=== PATIENT | female | born 1990 | race Caucasian/White ===

== ENCOUNTER 2019-10-11 03:06 | Inpatient (IN) | payer OTHER ==
[~2019-10-11] VITALS: Ht 165.1 cm; Wt 75.7 kg
--- NOTE | 2019-10-11 06:15 | NUR ---
RECEIVED FROM ER OF [facility] PER YUDELKA AWAKE AND ALERT. NO SOB. DX. OF GALLSTONES. NO EDEMA. SKIN INTACT . A/O X 4. ROM X4. CARE PLANS FOR THE DAY DISCUSSED WITH HER AND CALL LIGHT USE FOR HELP OR IF IN PAIN EXPLAINED TO HER. DX. OF GALLSTONES. IVF SITE TO [facility]#20. UNDER MD YARY SANTOS. WILL ENDORSE TO AM RN FOR CONTINUITY OF CARE.
[2019-10-11] MEDS ORDERED: ONDANSETRON 4 MG/2 ML VIAL IVP PRN (06:30)
[2019-10-11] MEDS ORDERED: DEXT 5% / NACL 0.45% 1,000 ML IV SCH (06:30)
[2019-10-11 06:47] VITALS: BP 118/75
[2019-10-11] MEDS: MORPHINE SULFATE 4 MG/ML SYR IVP PRN ×3 (06:54→20:59)
--- NOTE | 2019-10-11 07:01 | NUR ---
PT. MEDICATED WITH ZOFRAN IVP AND MORPHINE 4 MG IVP REQUESTED BY PT. "JEFF ANGELA" PER PT.
[2019-10-11 08:00] VITALS: BP 111/68
--- NOTE | 2019-10-11 08:35 | NUR ---
AT THE BEDSIDE WITH PATIENT, PATIENT SLEEPING IN BED, NO DISTRESS NOTED.
[2019-10-11 08:56] LABS: BASOPHILS % (AUTO) 0.2 % (0.0-2.0); EOSINOPHILS % (AUTO) 0.4 % (0.0-4.0); HEMATOCRIT 37.5 % (36-48); HEMOGLOBIN 12.5 g/dL (12.0-16.0); LYMPHOCYTES # (AUTO) 1.1 K/uL (2.5-16.5); LYMPHOCYTES % (AUTO) 14.5 % (20.5-51.1); MEAN CORPUSCULAR HEMOGLOBIN 31 pg (27-31); MEAN CORPUSCULAR HGB CONC 33 g/dL (33-37); MEAN CORPUSCULAR VOLUME 93.3 fL (80-94); MONOCYTES # (AUTO) 0.5 K/uL (0.8-1.0); MONOCYTES % (AUTO) 5.9 % (1.7-9.3); NEUTROPHILS # (AUTO) 6.2 K/uL (1.8-7.7); PLATELET COUNT (AUTO) 291 K/uL (140-450); RED BLOOD CELL COUNT(AUTO) 4.01 MIL/uL (4.20-5.40); RED CELL DISTRIBUTION WIDTH 14.4 % (11.6-13.7); WHITE BLOOD COUNT (AUTO) 7.8 K/uL (4.8-10.8)
[2019-10-11 09:13] LABS: ALBUMIN 3.3 g/dL (3.4-5.0); ANION GAP 12.9 (8-16); CARBON DIOXIDE 26.8 mmol/L (21-32); CREATININE 0.8 mg/dL (0.6-1.3); POTASSIUM 3.7 mmol/L (3.5-5.1); TOTAL BILIRUBIN 2.9 mg/dL (0.0-1.0)
[2019-10-11 12:00] VITALS: BP 109/79
--- NOTE | 2019-10-11 12:09 | NUR ---
PATIENT RESTING IN BED WITH FAMILY AT THE BEDSIDE. 3 CHILDREN AND . NO DISTRESS NOTED, WILL CONTINUE TO MONITOR PATIENT .
[2019-10-11] MEDS: LACTATED RINGERS 1,000 ML IV SCH ×2 (14:35→21:00)
[2019-10-11 16:00] VITALS: BP 116/80
--- NOTE | 2019-10-11 16:12 | NUR ---
PATIENT HAS BEEN SCREENED AND CATEGORIZED LOW NUTRITION RISK. PATIENT WILL BE SEEN WITHIN 7 DAYS OF ADMISSION. 10/17/[address]
[2019-10-11] MEDS: SENNA 8.6 MG TAB PO SCH (16:32)
--- NOTE | 2019-10-11 17:13 | NUR ---
AT THE BEDSIDE WITH DR BECERRA AND VISION REHABILITATION THERAPIST, CURBSTONE SETTER USED TO EXPLAIN PROCEDURE AND PLAN OF CARE. PATIENT IN STABLE CONDITION. VERBALIZED UNDERSTANDING OF PLAN FOR ERCP AND GALLBLADDER REMOVAL. WILL CONTINUE TO MONITOR PATIENT.
--- NOTE | 2019-10-11 19:30 | NUR ---
ENDORSED TO AFTER SCHOOL COUNSELOR NURSE. PATIENT IS IN STABLE CONDITION.
[2019-10-11 20:00] VITALS: BP 107/63
--- NOTE | 2019-10-11 20:00 | NUR ---
CALLED THE RADIOLOGY TO GET A FAX OF THE USD OF THE GALLBLADDER CRITICAL RESULT. RTHIS WAS ENDORSED BY THE PREVIOUS SHIFT, BENNIE PANDEY THAT RADIOLOGIST CALLED HIM UP RE: CRITICAL RESULT.
--- NOTE | 2019-10-11 20:09 | NUR ---
FAX RECEIVED WILL INFORM DR. BECERRA.
--- NOTE | 2019-10-11 20:11 | NUR ---
CALLED EXCHANGE FOR DR. BECERRA, AWAITING CALL BACK.
--- NOTE | 2019-10-11 20:27 | NUR ---
DR. MAURER CALLED AND INFORMED HIM OF THE USD OF THE GB= CHOLELITHIASIS W/ GB WALL THICKENING. HIDA SCAN MAY BE PURSUED.SAID THAT HE AND NOT DR. LONDONO WILL DO THE PROCEDURE. CONSENT TO BE SIGNED BY PT UNDER DR. MAURER.
--- NOTE | 2019-10-11 20:29 | NUR ---
NO CALL BACK BY DR. BECERRA STILL AWAITING
[2019-10-11] MEDS: PIPERACILLIN/TAZOBACTAM 3.375 GM in DEXTROSE 5% 50 ML IV SCH (20:59)
--- NOTE | 2019-10-11 21:10 | NUR ---
CALLED DR. BECERRA CELLPHONE, DR. NAVARRETE RE: GB USD RESULT; WITH ORDERS OF URINE TEST, CARRIED OUT.
[2019-10-12] VITALS: BP 108/65
--- NOTE | 2019-10-12 01:30 | NUR ---
COLLECTED URINE FOR URINE TEST, AWAITING RESULTS TO RELAY RESULT TO RADIOLOGY DEPT SO THAT CT SCAN OF THE PELVIS AND ABDOMEN CAN BE DONE.
[2019-10-12] MEDS: LACTATED RINGERS 1,000 ML IV SCH ×4 (02:09→20:29)
[2019-10-12 04:00] VITALS: BP 108/66
[2019-10-12] MEDS: PIPERACILLIN/TAZOBACTAM 3.375 GM in DEXTROSE 5% 50 ML IV SCH ×3 (04:39→20:11)
[2019-10-12 04:58] LABS: APPEARANCE,URINE CLEAR (CLEAR); BILIRUBIN,URINE NEGATIVE (NEGATIVE); BLOOD, URINE NEGATIVE (NEGATIVE); COLOR,URINE YELLOW (YELLOW); LEUKOCYTE ESTERASE ,URINE 1+ (NEGATIVE); NITRITE, URINE NEGATIVE (NEGATIVE); UGLUCOSE NEGATIVE (NEGATIVE)
[2019-10-12 05:07] LABS: RBC,URINE 0-5 /HPF (0-5); YEAST,URINE Many /HPF (None Seen)
[2019-10-12 06:42] LABS: ANION GAP 13.9 (8-16); CREATININE 0.7 mg/dL (0.6-1.3); POTASSIUM 3.9 mmol/L (3.5-5.1)
[2019-10-12 06:49] LABS: ALBUMIN 3.1 g/dL (3.4-5.0); BILIRUBIN,DIRECT 0.4 mg/dL (0.0-0.3)
--- NOTE | 2019-10-12 07:12 | NUR ---
PT AWAKE ALERT ORIENTED X 4, AMBULATORY PT FOR ERCP; PT IN STABLE CONDITION, ENDORSED TO NEXT SHIFT
--- NOTE | 2019-10-12 07:30 | NUR ---
Received report from production shift supervisor nurse. Pt is in stable condition. Call light in reach.
[2019-10-12 08:00] VITALS: BP 104/58
--- NOTE | 2019-10-12 08:00 | NUR ---
Pt is off unit for surgery.
[2019-10-12] MEDS ORDERED: KETAMINE 500 MG/5 ML VIAL ONE (08:02)
[2019-10-12] MEDS ORDERED: MIDAZOLAM 2 MG/2 ML VIAL ONE (08:02)
[2019-10-12] MEDS: SENNA 8.6 MG TAB PO SCH ×3 (09:00→17:31)
[2019-10-12] MEDS ORDERED: HYDROmorphone 1 MG/ML AMP IVP PRN (09:15)
[2019-10-12] MEDS ORDERED: ONDANSETRON 4 MG/2 ML VIAL IVP PRN (09:15)
--- NOTE | 2019-10-12 10:05 | NUR ---
Pt came back from surgery via gurney. Pt is in stable condition. No complains of pain or distress noted. Call light in reach.
[2019-10-12] MEDS: PANTOPRAZOLE 40 MG INJ VIAL IVP SCH (10:32)
[2019-10-12 12:00] VITALS: BP 108/62
--- NOTE | 2019-10-12 12:00 | NUR ---
Pt is in bed in stable condition. Family by bedside. Call light in reach.
--- NOTE | 2019-10-12 15:06 | NUR ---
Pt is in bed in stable condition. Family by bedside. Call light in reach.
[2019-10-12 16:00] VITALS: BP 106/61
--- NOTE | 2019-10-12 18:02 | NUR ---
Pt is in bed in stable condition. Call light in reach.
--- NOTE | 2019-10-12 19:11 | NUR ---
Shift report given to account clerk nurse. Pt is in bed in stable condition. Call light in reach.
--- NOTE | 2019-10-12 19:12 | NUR ---
Received endorsement from AM shift RN; patient A/Ox4, able to make needs known, Citizen [place] speaking only, ambulatory. Introduced self, updated board. No SOB or distress noted, on room air. IV site on right hand, 20 gauge, running Lactated Ringers at 150mL/hr. Skin intact. Bed in the lowest position, call light within reach. Initial assessment done. will continue to monitor.
--- NOTE | 2019-10-12 21:25 | NUR ---
Due meds given, tolerated well.
--- NOTE | 2019-10-12 23:45 | NUR ---
Vitals taken, no SOB or distress noted.
[2019-10-13] VITALS: BP 108/67
--- NOTE | 2019-10-13 01:45 | NUR ---
Checks made; patient asleep, eyes closed, visible chest rise and fall noted.
--- NOTE | 2019-10-13 04:00 | NUR ---
Rounds done; patient asleep, eyes closed, visible chest rise and fall noted.
[2019-10-13] MEDS: PIPERACILLIN/TAZOBACTAM 3.375 GM in DEXTROSE 5% 50 ML IV SCH ×3 (04:05→21:59)
[2019-10-13] MEDS: LACTATED RINGERS 1,000 ML IV SCH ×3 (04:06→19:55)
--- NOTE | 2019-10-13 06:02 | NUR ---
Vitals stable, due meds given. Will endorse to AM shift RN for continuity of care.
[2019-10-13 06:43] LABS: BASOPHILS % (AUTO) 0.7 % (0.0-2.0); EOSINOPHILS # (AUTO) 0.1 K/uL (0-0.4); EOSINOPHILS % (AUTO) 1.2 % (0.0-4.0); HEMATOCRIT 34.4 % (36-48); HEMOGLOBIN 11.5 g/dL (12.0-16.0); LYMPHOCYTES # (AUTO) 1.5 K/uL (2.5-16.5); LYMPHOCYTES % (AUTO) 24.5 % (20.5-51.1); MEAN CORPUSCULAR HEMOGLOBIN 31 pg (27-31); MEAN CORPUSCULAR HGB CONC 34 g/dL (33-37); MEAN CORPUSCULAR VOLUME 92.8 fL (80-94); MONOCYTES # (AUTO) 0.4 K/uL (0.8-1.0); MONOCYTES % (AUTO) 6.3 % (1.7-9.3); NEUTROPHILS # (AUTO) 4.2 K/uL (1.8-7.7); NEUTROPHILS % (AUTO) 67.3 % (42.2-75.2); PLATELET COUNT (AUTO) 273 K/uL (140-450); RED BLOOD CELL COUNT(AUTO) 3.71 MIL/uL (4.20-5.40); RED CELL DISTRIBUTION WIDTH 13.7 % (11.6-13.7); WHITE BLOOD COUNT (AUTO) 6.3 K/uL (4.8-10.8)
[2019-10-13 06:50] LABS: ALBUMIN 2.9 g/dL (3.4-5.0); ANION GAP 14.2 (8-16); CARBON DIOXIDE 26.5 mmol/L (21-32); CREATININE 0.7 mg/dL (0.6-1.3); POTASSIUM 3.7 mmol/L (3.5-5.1); TOTAL BILIRUBIN 0.8 mg/dL (0.0-1.0)
--- NOTE | 2019-10-13 07:15 | NUR ---
RECEIVED PT FROM MANAGER BUSINESS OPERATIONS NURSE, PT IS AWAKE AND LYING ON THE BED WITH SIDE RAILS UP AND CALL LIGHT WITHIN REACH, IV LINE ON THE RT HAND G.20 WITH LR INFUSING AT 150ML/HR, INTACT, PT DENIES PAIN AND NO SIGN OF DISTRESS NOTED AND WILL MONITOR PT.
[2019-10-13 07:50] VITALS: BP 110/66
[2019-10-13] MEDS: PANTOPRAZOLE 40 MG INJ VIAL IVP SCH (09:00)
[2019-10-13] MEDS: SENNA 8.6 MG TAB PO SCH ×3 (09:00→16:43)
--- NOTE | 2019-10-13 09:00 | NUR ---
PT IS OFF THE UNIT NOW FOR A PROCEDURE, BP IS 97/52, PULSE IS 67, O2 SATURATION IS 96%, PT IS STABLE AT THIS TIME.
[2019-10-13] MEDS ORDERED: MIDAZOLAM 2 MG/2 ML VIAL ONE (09:02)
[2019-10-13] MEDS ORDERED: fentaNYL 0.05 MG/ML VIAL ONE (09:02)
[2019-10-13] MEDS ORDERED: SUCCINYLCHOLINE CHLORIDE 200 MG/10 ML VIAL IVP ONE (09:08)
[2019-10-13] MEDS ORDERED: KETOROLAC 30 MG/ML VIAL ONE (09:08)
[2019-10-13] MEDS ORDERED: DESFLURANE 240 ML BTL INH ONE (09:08)
[2019-10-13] MEDS ORDERED: PROPOFOL 200 MG/20 ML VIAL IV ONE (09:08)
[2019-10-13] MEDS ORDERED: ROCURONIUM 50 MG/5 ML VIAL IV ONE (09:08)
[2019-10-13] MEDS ORDERED: LIDOCAINE 2% 100 MG/5 ML SYR IVP ONE (09:08)
[2019-10-13] MEDS ORDERED: DEXAMETHASONE 4 MG/ML VIAL ONE (09:08)
[2019-10-13] MEDS ORDERED: ONDANSETRON 4 MG/2 ML VIAL IVP PRN ×2 (09:40→11:30)
[2019-10-13] MEDS ORDERED: HYDROmorphone 1 MG/ML AMP IVP PRN (09:40)
[2019-10-13] MEDS: BUPIVACAINE-MPF/EPI 0.25% 30 ML VIAL INJ ONE ×2 (09:56→11:00)
[2019-10-13] MEDS ORDERED: HYDROcodone/APAP 5/325 MG 1 TAB TAB PO PRN (11:30)
[2019-10-13] MEDS ORDERED: MORPHINE SULFATE 4 MG/ML SYR IV PRN (11:30)
[2019-10-13] MEDS ORDERED: MORPHINE SULFATE 2 MG/ML SYR IVP PRN (11:30)
[2019-10-13] MEDS ORDERED: HYDROmorphone PFS 2 MG/ML SYR ONE (11:49)
--- NOTE | 2019-10-13 12:25 | NUR ---
PT CAME BACK TO ROOM FROM A LAPAROSCOPIC CHOLECYSTECTOMY WITH OPEN CHOLANGIOGRAM, [address] AND A SHAUNA BULB ON THE RT ABDOMEN, VS TAKEN, BP IS 119/68, PULSE IS 70, TEMP. IS 97.5, O2 SATURATION IS 96% ON ROOM AIR AND RESPIRATION IS 16/MIN, WILL MONITOR PT.
--- NOTE | 2019-10-13 12:44 | NUR ---
PT WAS GIVEN IV ZOSYN VIA PIGGYBACK NOW. WILL MONITOR PT.
[2019-10-13 15:08] LABS: ANION GAP 17.9 (8-16); CARBON DIOXIDE 23.4 mmol/L (21-32); CREATININE 0.7 mg/dL (0.6-1.3); POTASSIUM 4.3 mmol/L (3.5-5.1)
[2019-10-13 15:09] LABS: TOTAL BILIRUBIN 0.7 mg/dL (0.0-1.0)
--- NOTE | 2019-10-13 15:15 | NUR ---
PT IS IN THE BATHROOM NOW.
[2019-10-13 16:00] VITALS: BP 119/66
--- NOTE | 2019-10-13 16:32 | NUR ---
PT AMBULATED TO THE BATHROOM AND WAS ASSISTED, AND THEN BACK TO BED, PAIN IS 2/10, ORAL MEDICATION WAS GIVEN AND TOLERATED IT, WILL MONITOR RPT.
--- NOTE | 2019-10-13 19:05 | NUR ---
ENDORSED PT TO PERSONAL DEVELOPMENT COACH NURSE FOR CONTINUITY OF CARE
--- NOTE | 2019-10-13 19:06 | NUR ---
RECEIVED REPORT FROM AM SHIFT NURSE. PATIENT ALERT AND ORIENTED X4. [place] SPEAKING. WITH RIGHT AC 20G RUNNING IVF. NO APPARENT DISTRESS NOTED. WITH C/O OF 10/10 PAIN ON INCISION SITES. WILL MEDICATE PER PAIN SCALE. 3 INCISION SITES NOTED WITH 1 SHAUNA DRAIN ON RIGHT ABDOMEN. DRESSINGS CLEAN, DRY AND INTACT. WILL CONTINUE TO MONITOR.
[2019-10-13] MEDS: HYDROmorphone 1 MG/ML AMP IVP PRN (19:46)
--- NOTE | 2019-10-13 21:05 | NUR ---
PATIENT ASLEEP IN BED. NO APPARENT DISTRESS NOTED. WILL CONTINUE TO MONITOR.
--- NOTE | 2019-10-13 23:00 | NUR ---
ASSISTED PATIENT TO RESTROOM. TOLERATED WELL. WILL CONTINUE TO MONITOR.
[2019-10-14] VITALS: BP 125/68
--- NOTE | 2019-10-14 01:00 | NUR ---
PATIENT ASLEEP IN BED. NO APPARENT DISTRESS NOTED. WILL CONTINUE TO MONITOR.
[2019-10-14] MEDS: LACTATED RINGERS 1,000 ML IV SCH ×4 (01:25→20:10)
[2019-10-14] MEDS: HYDROmorphone 1 MG/ML AMP IVP PRN ×5 (01:35→22:14)
--- NOTE | 2019-10-14 02:30 | NUR ---
PATIENT ASLEEP IN BED. NO APPARENT DISTRESS NOTED. WILL CONTINUE TO MONITOR.
--- NOTE | 2019-10-14 04:30 | NUR ---
ASSISTED PATIENT TO RESTROOM. TOLERATED WELL. WILL CONTINUE TO MONITOR.
[2019-10-14] MEDS: PIPERACILLIN/TAZOBACTAM 3.375 GM in DEXTROSE 5% 50 ML IV SCH ×3 (05:15→20:11)
--- NOTE | 2019-10-14 06:30 | NUR ---
PATIENT ASLEEP IN BED. NO APPARENT DISTRESS NOTED. WILL CONTINUE TO MONITOR.
[2019-10-14 07:00] LABS: BASOPHILS % (AUTO) 0.4 % (0.0-2.0); EOSINOPHILS % (AUTO) 0.4 % (0.0-4.0); HEMATOCRIT 31.5 % (36-48); HEMOGLOBIN 10.6 g/dL (12.0-16.0); LYMPHOCYTES % (AUTO) 24.1 % (20.5-51.1); MEAN CORPUSCULAR HEMOGLOBIN 31 pg (27-31); MEAN CORPUSCULAR HGB CONC 34 g/dL (33-37); MEAN CORPUSCULAR VOLUME 92.8 fL (80-94); MONOCYTES # (AUTO) 0.6 K/uL (0.8-1.0); MONOCYTES % (AUTO) 7.1 % (1.7-9.3); NEUTROPHILS # (AUTO) 5.6 K/uL (1.8-7.7); PLATELET COUNT (AUTO) 261 K/uL (140-450); RED BLOOD CELL COUNT(AUTO) 3.39 MIL/uL (4.20-5.40); RED CELL DISTRIBUTION WIDTH 13.7 % (11.6-13.7); WHITE BLOOD COUNT (AUTO) 8.3 K/uL (4.8-10.8)
--- NOTE | 2019-10-14 07:25 | NUR ---
ENDORSED TO AM SHIFT NURSE IN STABLE CONDITION.
--- NOTE | 2019-10-14 07:26 | NUR ---
PATIENT HANDOFF FROM OPERATIONS DEVELOPER NURSE FOR CONTINUITY OF CARE, PATIENT IS LAYING IN BED REPORTING PAIN, MEDICATIONS OFFERED. S/P LAP CHOLECYSECTOMY. [place] SPEAKING. WILL CONTINUE TO MONITOR.
[2019-10-14 07:31] LABS: AMYLASE 57 U/L (25-115); LIPASE 227 U/L (73-393)
[2019-10-14 08:00] VITALS: BP 119/68
--- NOTE | 2019-10-14 09:30 | NUR ---
PATIENT IS RESTING IN BED, EYES CLOSED, COMPLAINING OF PAIN, MEDICATION GIVEN FOR SEVERE 10/10 ABDOMINAL PAIN. PATIENT TOLERATED MEDICATION WELL. EATING BREAKFAST. WILL CONTINUE TO MONITOR.
[2019-10-14] MEDS: PANTOPRAZOLE 40 MG INJ VIAL IVP SCH (10:17)
[2019-10-14] MEDS: SENNA 8.6 MG TAB PO SCH ×3 (10:27→16:20)
--- NOTE | 2019-10-14 11:30 | NUR ---
SHAUNA DRAINED, APPROXIMATELY 42 ML OF SEROSANGUINEOUS FLUID EMPTIED. PATIENT TOLERATED WELL. BED IN LOW POSITION, CALL LIGHT AT BEDSIDE, WILL CONTINUE TO MONITOR.
--- NOTE | 2019-10-14 13:30 | NUR ---
PATIENT IS RESTING IN BED, COMPLAINING OF ABDOMINAL PAIN, MEDICATION GIVEN, PATIENT TOLERATED WELL. BED IN LOW POSITION, CALL LIGHT ON, WILL CONTINUE TO MONITOR.
[2019-10-14 16:00] VITALS: BP 119/72
--- NOTE | 2019-10-14 19:26 | NUR ---
RECEIVED REPORT FROM YARITZA RN AND JENNIFER RN DAYSHIFT NURSES AT BEDSIDE FOR CONTINUITY OF CARE, PT IN STABLE CONDITION.
[2019-10-14 20:00] VITALS: BP 110/61
--- NOTE | 2019-10-14 20:00 | NUR ---
PT SITTING UP IN LOW BED WITH SIDE RAILS UP X2. SHE IS AOX4 MOSTLY [place] SPEAKING. PT HAS IV SITE ON RAC 20G INTACT AND RUNNING LACTATED RINGERS AT 150MLS/HR. PT HAS DRESSINGS OVER INCISIONS , WHICH ARE DRY AND INTACT, SHE HAS NO C/O VOICED AT THIS TIME. PT BOWEL SOUNDS ARE HYPOACTIVE, SHE WAS ENCOURAGED TO AMBULATE SHORT DISTANCES LIKE THE BATHROOM AND TO MOVE IN BED WHICH WILL HELP BOWELS MOVE. V/S FOLLOWS : T 98.0 P 62 R 18 B/P 110/61 02 94% ON ROOM AIR. ALL REQUESTED NEEDS ATTENDED AND CALL VALENTE IN REACH.
--- NOTE | 2019-10-14 21:00 | NUR ---
PT IN BED, SHE WAS GIVEN ORDERED ZOSYN, AND HAD HER FLUID BAG OF LACTATED RINGERS REPLACED WELL. PT DENIES PAIN AT THIS TIME, DRESSINGS REMAIN INTACT AND IV SITE FLUSHED PATENT. BED IN LOW POSITION WITH SIDE RAILS UP X2 AND CALL VALENTE IN REACH. SCD'S IN PLACE FOR DVT PREVENTION.
--- NOTE | 2019-10-14 22:15 | NUR ---
PT C/O SEVERE PAIN IN ABDOMEN AND WAS GIVEN IVP DILAUDID FOR C/O OF 8/10 PAIN, SHE WAS REMINDED THAT TOO MUCH PAIN MEDICATION WILL SLOW DOWN YOUR BOWELS, PT ACKNOWLEDGED THIS INFORMATION. WILL CONTINUE TO MONITOR FOR PAIN REIELF AND BOWEL MOVEMENT. BED LOW SIDE RIALS UP X2 AND CALL VALENTE IN REACH.
[2019-10-15] VITALS: BP 101/60
--- NOTE | 2019-10-15 | NUR ---
PT IN BED, NO S/S OF PAIN OR DISTRESSS NOTED. SURGICAL SITES ON ABDOMEN CLEANED WITH NORMAL SALINE AND REDRESSED. PT HAS BRENDA ON 3 SURGICAL SITES AREAS HAVE BRENDA INTACT AND NO S/S OF INFECTION NOTED. CLEAN AND DRY DRESSINGS APPLIED. V/S FOLLOWS: T 97.5 P 85 R 18 B/P 111/79 -02 99% ON ROOM AIR. BED LOW SIDE RAILS UP X2 AND CALL VALENTE IN REACH. IV SITE INTACT AND RUNNING LACTATED RINGERS AT 150MLS/HR.
--- NOTE | 2019-10-15 01:59 | NUR ---
PT IN BED SLEEPING NO S/S OF PAIN OR DISTRESS NOTED.
--- NOTE | 2019-10-15 05:30 | NUR ---
PT RECEIVED ORDERED ZOSYN IV PB RUNNING AT 100MLS/ ORDERED. ALSO NEW BAG OF LACTATED RINGERS HUNG. PT IN BED SLEEPING NO S/S OF PAIN OR DISTRESS NOTED. IV SITE ASYMPTOMATIC BED LOW SIDE RAILS UP AND CALL VALENTE IN REACH.
[2019-10-15] MEDS: PIPERACILLIN/TAZOBACTAM 3.375 GM in DEXTROSE 5% 50 ML IV SCH ×2 (05:42→16:09)
[2019-10-15] MEDS: LACTATED RINGERS 1,000 ML IV SCH ×2 (05:45→11:55)
[2019-10-15 06:50] LABS: BASOPHILS # (AUTO) 0.1 K/uL (0.00-0.22); BASOPHILS % (AUTO) 0.7 % (0.0-2.0); EOSINOPHILS # (AUTO) 0.1 K/uL (0-0.4); EOSINOPHILS % (AUTO) 1.2 % (0.0-4.0); HEMATOCRIT 33.3 % (36-48); HEMOGLOBIN 11.2 g/dL (12.0-16.0); LYMPHOCYTES # (AUTO) 1.9 K/uL (2.5-16.5); LYMPHOCYTES % (AUTO) 24.4 % (20.5-51.1); MEAN CORPUSCULAR HEMOGLOBIN 31 pg (27-31); MEAN CORPUSCULAR HGB CONC 34 g/dL (33-37); MEAN CORPUSCULAR VOLUME 92.6 fL (80-94); MONOCYTES # (AUTO) 0.6 K/uL (0.8-1.0); MONOCYTES % (AUTO) 8.1 % (1.7-9.3); NEUTROPHILS # (AUTO) 5.1 K/uL (1.8-7.7); NEUTROPHILS % (AUTO) 65.6 % (42.2-75.2); PLATELET COUNT (AUTO) 292 K/uL (140-450); RED CELL DISTRIBUTION WIDTH 13.6 % (11.6-13.7); WHITE BLOOD COUNT (AUTO) 7.7 K/uL (4.8-10.8)
--- NOTE | 2019-10-15 07:15 | NUR ---
RECEIVED REPORT FROM RADIO PERFORMER NURSE ANNA FOR CONTINUITY OF CARE. PT IN STABLE CONDITION. RESPIRATIONS EVEN AND UNLABORED, ROOM AIR. IV INTACT AND PATENT. SAFETY MEASURES IN PLACE. BED IN LOW POSITION. CALL LIGHT AT BEDSIDE. WILL CONTINUE TO MONITOR.
[2019-10-15 08:00] VITALS: BP 111/68
[2019-10-15 08:56] LABS: ALBUMIN 2.8 g/dL (3.4-5.0); ANION GAP 11.8 (8-16); CARBON DIOXIDE 28.6 mmol/L (21-32); CREATININE 0.6 mg/dL (0.6-1.3); POTASSIUM 3.4 mmol/L (3.5-5.1); TOTAL BILIRUBIN 0.5 mg/dL (0.0-1.0)
--- NOTE | 2019-10-15 09:45 | NUR ---
CARBON SEQUESTRATION PLANT OPERATOR NIDA #[id number], USED TO INFORM PT OF MORNING MEDICATIONS. ALL QUESTIONS ANSWERED AT THIS TIME.
[2019-10-15] MEDS: PANTOPRAZOLE 40 MG INJ VIAL IVP SCH (10:16)
[2019-10-15] MEDS: SENNA 8.6 MG TAB PO SCH ×2 (10:17→16:09)
--- NOTE | 2019-10-15 11:33 | NUR ---
PT LYING IN BED SLEEP AT THIS TIME. BED IN LOW POSITION. CALL LIGHT AT BEDSIDE. WILL CONTINUE TO MONITOR.
--- NOTE | 2019-10-15 13:45 | NUR ---
PT TALKING WITH FAMILY AT BEDSIDE. RESPIRATIONS EVEN AND UNLABORED. BED IN LOW POSITION. CALL LIGHT AT BEDSIDE. WILL CONTINUE TO MONITOR.
--- NOTE | 2019-10-15 15:50 | NUR ---
MONITORING ANALYST PRIYANKA #[id number] USED. PT ASKING ABOUT PAIN MEDICATION AND DIET. PT REFUSED PAIN MEDICATION AT THIS TIME.
[2019-10-15] MEDS ORDERED: CIPR500T4 PO (16:42)
[2019-10-15] MEDS ORDERED: ACET-787 PO (16:44)
[2019-10-15] MEDS ORDERED: ONDA4TAB PO (16:46)
--- NOTE | 2019-10-15 17:30 | NUR ---
GAVE DISCHARGE INSTRUCTIONS AND RX PRESCRIPTION FOR HOME PHARMACY, PT VERBALIZED UNDERSTANDING. PT DENIED TELEPHONE HUMAN FACTORS SCIENTIST OPTED FOR SON TO TRANSLATE INFORMATION. IV REMOVED, LUMEN IN TACT. ID BAND REMOVED. PT WHEELED TO LOBBY IN WHEELCHAIR WHERE FAMILY WAS WAITING WITH VEHICLE. PT IN STABLE CONDITION.
--- NOTE | 2019-10-16 09:23 | NUR ---
WOUND CARE CONSULT NOT DONE, PT. DISCHARGED.
--- NOTE | 2019-10-17 16:12 | NUR ---
PCP Appointment: SW contacted Esthela from [facility] [phone] to schedule hospital follow up for patient. Per Esthela patient has an appointment at 3:30PM on 10/17/2019 @ [address] [place] [address]. Esthela stated that patient made appointment previously. No further needs identified.
== END 2019-10-15 17:30 | disposition home or self-care (01) | DRG 263 ==
LOC: MTU 06:14
PROVIDERS: ADMIT Internal Medicine Pulmonary Disease; ATTEND Internal Medicine Pulmonary Disease
PROC: BF141ZZ Fluoroscopy of Gallbladder, Bile Ducts and Pancreatic Ducts using Low Osmolar Contrast (ICD-10-PCS; 2019-10-12)
PROC: 0FC98ZZ Extirpation of Matter from Common Bile Duct, Via Natural or Artificial Opening Endoscopic (ICD-10-PCS; 2019-10-12)
PROC: 0F798DZ Dilation of Common Bile Duct with Intraluminal Device, Via Natural or Artificial Opening Endoscopic (ICD-10-PCS; principal; 2019-10-12 08:00)
PROC: 0FT44ZZ Resection of Gallbladder, Percutaneous Endoscopic Approach (ICD-10-PCS; 2019-10-13)
PROC: BF101ZZ Fluoroscopy of Bile Ducts using Low Osmolar Contrast (ICD-10-PCS; 2019-10-13)
DX: K85.10 Biliary acute pancreatitis without necrosis or infection (principal); K80.67 Calculus of gallbladder and bile duct with acute and chronic cholecystitis with obstruction
CPT/HCPCS: 36415; 74300; 74330; 76705; 80048; 80053; 80076; 81001; 81025; 82150; 82374; 83690; 85025; 86886; 86900; 86901; 87081; 87086; 88304; C1727; C1769; C1773; C1887; C9113; J0330; J1100; J1170; J1885; J2001; J2250; J2270; J2405; J2543; J2704; J3010; J3490; J7030; J7060; J7120; Q0092; Q9967